=== PATIENT | male | born 1980 | race African-American/Black ===

== ENCOUNTER 2019-09-26 20:54 | Emergency (ER) | payer SELFPAY ==
[~2019-09-26] VITALS: Ht 185.4 cm; Wt 129.5 kg
[2019-09-26 21:14] VITALS: Ht 185.4 cm; Wt 129.5 kg
[2019-09-26 22:01] LABS: BASOPHILS 0.1 % (0-2); EOSINOPHILS 0.2 % (0-7); HEMATOCRIT 45.8 % (42.0-54.0); IMMATURE GRANULOCYTES 0.1 % (0-5); LYMPHOCYTES 18.4 % (15-50); MCH 30.7 pg (26.0-34.0); MCHC 34.9 g/dL (31.0-37.0); MCV 87.9 fL (80.0-100.0); MEAN PLATELET VOLUME 9.8 fL (7.4-10.4); MONOCYTES 8.2 % (2-11); PLATELET COUNT 176 10x3/uL (130-400); RBC 5.21 10x6/uL (4.20-6.10)
[2019-09-26 22:13] LABS: CALC OSMOLALITY 273 mosm/kg (275-300); CALCIUM 8.7 mg/dL (8.5-10.1); CARBON DIOXIDE 27.5 mmol/L (21.0-32.0); CHLORIDE - SERUM 102 mmol/L (98-107); CREATININE - SERUM 1.3 mg/dL (0.6-1.3); GLUCOSE 105 mg/dL (74-106); SODIUM 137 mmol/L (136-145); UREA NITROGEN 12 mg/dL (7-18); eGFR NON AFRICAN AMERICAN 65 mL/min (90-120)
[2019-09-26 22:25] LABS: INR 0.96 (0.85-1.17); PROTIME 12.8 SECONDS (11.6-15.0)
[2019-09-26 22:33] LABS: ALBUMIN 3.8 g/dL (3.4-5.0); ALKALINE PHOSPHATASE 42 U/L (30-120); ALT (SGPT) 29 U/L (10-68); BILIRUBIN - TOTAL 0.25 mg/dL (0.2-1.3); C-REACTIVE PROTEIN 0.9 mg/dL (0.0-0.9); CKMB 0.4 U/L (0.0-3.6); CREATINE KINASE 736 UL (21-232); FERRITIN 200 ng/mL (3-244); PROTEIN - SERUM 7.9 g/dL (6.4-8.2)
[2019-09-26 22:35] LABS: PRO BNP < 5 pg/mL (0-125); TROPONIN-I < 0.017 ng/mL (0.000-0.060)
[2019-09-26] MEDS ORDERED: MEDROL DOSE PACK4 MG PO (22:39)
[2019-09-26] MEDS ORDERED: BROMFED-DM COU473 ML PO (22:39)
[2019-09-26] MEDS ORDERED: ALBUTEROL SULF8.5 GM INH (22:39)
[2019-09-27 00:43] VITALS: BP 101/67
== END 2019-09-26 23:54 | disposition home or self-care (01) ==
LOC: D.ER 20:54
PROVIDERS: Family Medicine
DX: B34.9 Viral infection, unspecified (principal); Z20.828 Contact with and (suspected) exposure to other viral communicable diseases; R79.89 Other specified abnormal findings of blood chemistry; R53.1 Weakness; R50.9 Fever, unspecified; R05 Cough; R06.02 Shortness of breath

== ENCOUNTER 2019-10-01 05:41 | Inpatient (IN) | payer MEDICAID ==
[~2019-10-01] VITALS: Ht 185.4 cm; Wt 125.0 kg
[~2019-10-01 05:41] MED LIST: ALBUTEROL SULF8.5 GM INH; BROMFED-DM COU473 ML PO; MEDROL DOSE PACK4 MG PO
[2019-10-01 05:57] VITALS: Ht 185.4 cm; Wt 125.0 kg
[2019-10-01 06:45] LABS: CALC OSMOLALITY 267 mosm/kg (275-300); CALCIUM 8.7 mg/dL (8.5-10.1); CARBON DIOXIDE 24.6 mmol/L (21.0-32.0); CHLORIDE - SERUM 98 mmol/L (98-107); CREATININE - SERUM 1.1 mg/dL (0.6-1.3); GLUCOSE 117 mg/dL (74-106); SODIUM 133 mmol/L (136-145); UREA NITROGEN 14 mg/dL (7-18); eGFR NON AFRICAN AMERICAN 79 mL/min (90-120)
[2019-10-01 06:46] LABS: APTT 32.4 SECONDS (22.8-39.4)
[2019-10-01 06:47] LABS: INR 0.89 (0.85-1.17); PROTIME 12.1 SECONDS (11.6-15.0)
[2019-10-01 06:49] LABS: BASOPHILS 0.1 % (0-2); EOSINOPHILS 0 % (0-7); HEMATOCRIT 46.5 % (42.0-54.0); HEMOGLOBIN 16.4 g/dL (13.5-17.5); IMMATURE GRANULOCYTES 0.3 % (0-5); LYMPHOCYTES 16.3 % (15-50); MCH 30.5 pg (26.0-34.0); MCHC 35.3 g/dL (31.0-37.0); MCV 86.6 fL (80.0-100.0); MEAN PLATELET VOLUME 9.9 fL (7.4-10.4); MONOCYTES 9.4 % (2-11); NEUTROPHILS 73.9 % (40-80); PLATELET COUNT 160 10x3/uL (130-400); RBC 5.37 10x6/uL (4.20-6.10); RDW 12.6 % (11.5-14.5)
[2019-10-01 07:06] LABS: ALBUMIN 3.7 g/dL (3.4-5.0); ALKALINE PHOSPHATASE 35 U/L (30-120); ALT (SGPT) 41 U/L (10-68); BILIRUBIN - TOTAL 0.45 mg/dL (0.2-1.3); CKMB 0.5 U/L (0.0-3.6); FERRITIN 350 ng/mL (3-244); PRO BNP 13 pg/mL (0-125); PROTEIN - SERUM 8.7 g/dL (6.4-8.2)
[2019-10-01 07:07] LABS: CREATINE KINASE 1112 UL (21-232); TROPONIN-I < 0.017 ng/mL (0.000-0.060)
[2019-10-01 07:15] VITALS: BP 116/76
--- NOTE | 2019-10-01 07:15 | NUR ---
ASSUMED CARE OF PT. RESTING IN BED, TALKING ON CELL PHONE. DENIES C/O, VSS. RT AT BS FOR ABG'S AND TX
[2019-10-01 08:20] VITALS: BP 123/74
--- NOTE | 2019-10-01 08:21 | NUR ---
REPORT TO AROLDO LINDQUIST
== END 2019-10-01 13:18 | disposition home or self-care (01) | DRG 177 ==
LOC: D.ER 05:41 → D.M2 08:28
PROVIDERS: Family Medicine; ADMIT Family Medicine; ATTEND Family Medicine
DX: U07.1 COVID-19 (principal); J18.9 Pneumonia, unspecified organism